=== PATIENT | male | born 1975 | race African-American/Black ===

== ENCOUNTER 2019-08-11 21:35 | Emergency (ER) | payer OTHER ==
[~2019-08-11] VITALS: Ht 185.4 cm; Wt 88.9 kg
[2019-08-11 21:37] VITALS: BP 141/71; Ht 185.4 cm; Wt 88.9 kg
== END 2019-08-11 22:50 | disposition home or self-care (01) ==
LOC: ED 21:35
DX: M25.512 Pain in left shoulder (principal)
CPT/HCPCS: J1885

== ENCOUNTER 2019-08-27 14:37 | Emergency (ER) | payer OTHER ==
[~2019-08-27] VITALS: Ht 182.9 cm; Wt 90.3 kg
[2019-08-27 14:50] VITALS: BP 131/81; Ht 182.9 cm; Wt 90.3 kg
== END 2019-08-27 14:55 | disposition left against medical advice (07) ==
LOC: ED 14:37
DX: Z53.21 Procedure and treatment not carried out due to patient leaving prior to being seen by health care provider (principal)